=== PATIENT | female | born 1935 | race Caucasian/White ===

== ENCOUNTER 2016-05-01 07:28 | Day surgery (SDC) | payer OTHER ==
[~2016-05-01 07:28] MED LIST: LACTATED RINGERS SOLUTION 1,000 ML IV SCH
[2016-05-01] MEDS ORDERED: PROPOFOL 60 ML ONE (07:53)
[2016-05-01 08:37] VITALS: BMI 28.7
[2016-05-01 09:41] VITALS: TEMP 97.2
[2016-05-01 10:44] VITALS: BP 112/52; PULSE 65
--- NOTE | 2016-05-02 13:16 | PATH ---
Surgical Pathology Report Patient Name: REJI DE PAZ [facility]. Rec. #: [id number] /Age/Gender: 1935 (Age: 80) / F Account: [id number] Location: [facility]SU-ENDOSCOPY Taken: 05/01/2016 Received: 05/01/2016 Reported: 05/02/2016 Physicians: Qamar Torrez M.D. Specimen(s) Received BX LEFT COLON Clinical History History of colon polyp Left colon colitis, universal diverticulosis, rule out ischemia, hemorrhoids Final Diagnosis COLON, LEFT, BIOPSY: COLONIC MUCOSA WITH FOCAL ACTIVE COLITIS WITH FOCAL MUCOSAL HEMORRHAGE , VASCUALR CONGESTION AND FOCAL MILD LAMINA PROPRIA FIBROSIS (SEE COMMENT). NO EVIDENCE OF SIGNIFICANT ARCHITECTURAL DISTORTION, GRANULOMATA OR DYSPLASIA. Comment: The histologic findings are non-specific. An ischemic injury may demonstrate these histologic features, although the findings are not pathognomonic of ischemia. Other etiologies of active inflammation such as infections, drug/toxic injury or peridiverticular inflammation cannot be excluded. Clinical and endoscopic correlation and follow up are suggested. Electronically Signed Justo Ponce M.D. Gross Description Received in formalin, labeled "biopsy left colon" are 4 shipman, irregular portions of soft tissue ranging from 0.1-0.4 cm in greatest dimension. The specimens are submitted in toto in one cassette. 05/01/201605/01/2016
== END 2016-05-01 10:44 | disposition home or self-care (01) ==
LOC: JASU-ENDO 07:28
PROVIDERS: ATTEND Internal Medicine Gastroenterology
PROC: 0DBG8ZX Excision of Left Large Intestine, Via Natural or Artificial Opening Endoscopic, Diagnostic (ICD-10-PCS; principal; 2016-05-01 08:30)
DX: Z12.11 Encounter for screening for malignant neoplasm of colon (principal); Z86.010 Personal history of colon polyps; K51.50 Left sided colitis without complications; K57.30 Diverticulosis of large intestine without perforation or abscess without bleeding; K64.8 Other hemorrhoids; K63.89 Other specified diseases of intestine; I10 Essential (primary) hypertension; J44.9 Chronic obstructive pulmonary disease, unspecified; Z87.891 Personal history of nicotine dependence
CPT/HCPCS: 88305-TC

== ENCOUNTER 2019-12-19 15:00 | Emergency (ER) | payer OTHER ==
[2019-12-19 15:18] VITALS: PULSE 82; BMI 33.4
[2019-12-19] MEDS ORDERED: DIPHTH,PERTUSS(ACELL),TET 0.5 ML DISP.SYRIN IM ONE ×2 (15:45→15:48)
[2019-12-19] MEDS ORDERED: ACETAMINOPHEN 325 MG TABLET (FP) PO ONE (15:55)
[2019-12-19] MEDS ORDERED: ACETAMINOPHEN 325 MG TABLET (FP) ONE (15:56)
[2019-12-19 19:40] VITALS: BP 140/65; TEMP 97.2
== END 2019-12-19 19:41 | disposition home or self-care (01) ==
LOC: JERFT 15:00
PROC: 0HQKXZZ Repair Right Lower Leg Skin, External Approach (ICD-10-PCS; principal; 2019-12-19)
PROC: 3E0234Z Introduction of Serum, Toxoid and Vaccine into Muscle, Percutaneous Approach (ICD-10-PCS; 2019-12-19)
DX: S81.011A Laceration without foreign body, right knee, initial encounter (principal)
CPT/HCPCS: 73562-TC-RT-FY; 90715; 99284-25

== ENCOUNTER 2020-04-23 08:22 | Day surgery (SDC) | payer OTHER ==
[2020-04-20 10:47] VITALS: BMI 31.8
[2020-04-23] MEDS ORDERED: BUPIVACAINE HCL/PF 2.5 MG/ML - 30 ML VIAL IJ ONE (10:22)
[2020-04-23] MEDS ORDERED: PROPOFOL 20 ML ONE (10:43)
[2020-04-23] MEDS ORDERED: BUPIVACAINE HCL/PF 0.25% (2.5MG/ML) 10 ML VIAL IJ ONE (11:20)
[2020-04-23] MEDS ORDERED: ONDANSETRON 4 MG/2 ML VIAL IVPUSH PRN (11:33)
[2020-04-23] MEDS ORDERED: PROMETHAZINE HCL 25 MG/1 ML VIAL IVPUSH PRN (11:33)
[2020-04-23] MEDS ORDERED: oxyCODONE HCL 5 MG TABLET PO PRN ×2 (11:33)
[2020-04-23 14:03] VITALS: BP 142/79; PULSE 73; TEMP 97.8
== END 2020-04-23 14:03 | disposition home or self-care (01) ==
LOC: FASU 08:22
PROVIDERS: ATTEND Orthopaedic Surgery
PROC: 0SBD4ZZ Excision of Left Knee Joint, Percutaneous Endoscopic Approach (ICD-10-PCS; 2020-04-23)
PROC: 0SBD4ZZ Excision of Left Knee Joint, Percutaneous Endoscopic Approach (ICD-10-PCS; 2020-04-23)
PROC: 0SBD4ZZ Excision of Left Knee Joint, Percutaneous Endoscopic Approach (ICD-10-PCS; 2020-04-23)
PROC: 0SBD4ZZ Excision of Left Knee Joint, Percutaneous Endoscopic Approach (ICD-10-PCS; principal; 2020-04-23 11:08)
DX: S83.282A Other tear of lateral meniscus, current injury, left knee, initial encounter (principal); S83.242A Other tear of medial meniscus, current injury, left knee, initial encounter; M94.8X6 Other specified disorders of cartilage, lower leg; M65.862 Other synovitis and tenosynovitis, left lower leg; I10 Essential (primary) hypertension; J44.9 Chronic obstructive pulmonary disease, unspecified; X58.XXXA Exposure to other specified factors, initial encounter; Y93.9 Activity, unspecified; Y92.9 Unspecified place or not applicable; Y99.9 Unspecified external cause status
CPT/HCPCS: 88304-TC; 94760

== ENCOUNTER 2020-12-07 18:12 | Inpatient (IN) | payer OTHER ==
[2020-12-07 20:20] LABS: EOS % 4.3 % (0-4.5); HEMATOCRIT 39.9 % (32.4-45.2); HEMOGLOBIN 13.5 GM/dL (10.7-15.3); LYMPH % 17.5 % (8-40); MCH 29.5 pg (25.7-33.7); MCHC 33.8 g/dl (32.0-36.0); MEAN CELL VOLUME 87.2 fl (80-96); MEAN PLT VOLUME 9.4 fl (7.5-11.1); MONO % 8.5 % (3.8-10.2); NEUT % 68.7 % (42.8-82.8); PLATELET COUNT 229 10^3/uL (134-434); RBC 4.57 M/mm3 (3.60-5.2); RDW 14.4 % (11.6-15.6); WHITE BLOOD COUNT 7.3 K/mm3 (4.0-10.0)
[2020-12-07 20:53] LABS: CALCIUM 9.2 mg/dL (8.5-10.1)
[2020-12-07 20:54] LABS: ALBUMIN 3.3 g/dl (3.4-5.0); BLOOD UREA NITROGEN 20.4 mg/dL (7-18)
[2020-12-07 20:57] LABS: CREATININE 1.1 mg/dL (0.55-1.3)
[2020-12-07 20:59] LABS: BILIRUBIN,TOTAL 0.4 mg/dL (0.2-1); TOT PROT 7.6 g/dl (6.4-8.2)
[2020-12-07] MEDS ORDERED: VANCOMYCIN 1 GM in D5W (PRE-DOCKED) 1,000 MG/250 ML IVPB ONE (21:16)
[2020-12-07] MEDS ORDERED: VANCOMYCIN 1 GRAM (PRE-DOCKED) 1,000 MG/250 ML BAG IVPB ONE (21:35)
[2020-12-07] MEDS ORDERED: PIPERACILLIN/TAZOB 3.375 GM 3.375 GM/50 ML BAG IVPB ONE (21:35)
[2020-12-07] MEDS: PIPERACILLIN/TAZOB 3.375 GM 3.375 GM in DEXTROSE 5%-WATER - 50 ML IVPB ONE (21:41)
[2020-12-07] MEDS ORDERED: dilTIAZem HCL 30 MG TABLET ONE (22:43)
[2020-12-07] MEDS ORDERED: ATORVASTATIN CA 10 MG TABLET (FP) ONE (22:43)
[2020-12-07] MEDS: ATORVASTATIN CA 10 MG TABLET (FP) PO SCH (22:46)
[2020-12-07 23:53] LABS: CALCIUM 9.1 mg/dL (8.5-10.1)
[2020-12-07 23:54] LABS: BLOOD UREA NITROGEN 17.2 mg/dL (7-18)
[2020-12-07 23:57] LABS: CREATININE 1.1 mg/dL (0.55-1.3)
[2020-12-08] MEDS: BUDESONIDE/FORMETEROL FUMARATE 160/4.5 mcg INHALER IH SCH ×3 (00:33→21:35)
[2020-12-08] MEDS ORDERED: LINEZOLID 600 MG PREMIX BAG 600 MG/300 ML BAG IVPB SCH (02:00)
[2020-12-08 02:47] VITALS: BMI 30.7
[2020-12-08] MEDS ORDERED: PT OWN MED DRAWER 7, Y5N ONE ×3 (06:14→21:27)
[2020-12-08] MEDS: LISINOPRIL 10 MG TABLET PO SCH (06:39)
[2020-12-08 07:52] LABS: HEMATOCRIT 36.8 % (32.4-45.2); HEMOGLOBIN 12.7 GM/dL (10.7-15.3); MCH 29.4 pg (25.7-33.7); MCHC 34.5 g/dl (32.0-36.0); MEAN CELL VOLUME 85.2 fl (80-96); MEAN PLT VOLUME 9.1 fl (7.5-11.1); PLATELET COUNT 217 10^3/uL (134-434); RBC 4.32 M/mm3 (3.60-5.2); RDW 13.8 % (11.6-15.6); WHITE BLOOD COUNT 6.3 K/mm3 (4.0-10.0)
[2020-12-08 08:18] LABS: ALBUMIN 3.2 g/dl (3.4-5.0)
[2020-12-08 08:19] LABS: BLOOD UREA NITROGEN 13.9 mg/dL (7-18); CALCIUM 8.7 mg/dL (8.5-10.1); MAGNESIUM 2.1 mg/dL (1.8-2.4)
[2020-12-08 08:22] LABS: BILIRUBIN,TOTAL 0.9 mg/dL (0.2-1); PHOSPHOROUS 2.9 mg/dL (2.5-4.9); TOT PROT 6.7 g/dl (6.4-8.2)
[2020-12-08] MEDS ORDERED: PIPERACILLIN/TAZOB 3.375 GM 3.375 GM in DEXTROSE 5%-WATER - 50 ML IVPB SCH (10:00)
[2020-12-08] MEDS ORDERED: PIPERACILLIN/TAZOBACTAM 3.375 GM VIAL IVPB ONE (10:07)
[2020-12-08] MEDS ORDERED: DEXTROSE 5%-WATER - 50 ML IVPB ONE ×2 (10:08→17:01)
[2020-12-08] MEDS: ENOXAPARIN NA (PORCINE) 40 MG/0.4 ML DISP.SYRIN SQ SCH (10:39)
[2020-12-08] MEDS: PIPERACILLIN/TAZOB 3.375 GM 3.375 GM in DEXTROSE 5%-WATER - 50 ML IVPB ONE (11:22)
[2020-12-08] MEDS ORDERED: ceFAZolin SODIUM 1 GM VIAL ONE (17:01)
[2020-12-08] MEDS: CEFAZOLIN 1 GM in DEXTROSE 5%-WATER - 50 ML IVPB SCH (17:03)
[2020-12-08] MEDS: ACETAMINOPHEN 325 MG TABLET (FP) PO PRN (20:35)
[2020-12-08] MEDS: ATORVASTATIN CA 10 MG TABLET (FP) PO SCH (21:34)
[2020-12-09] MEDS ORDERED: DEXTROSE 5%-WATER - 50 ML IVPB ONE ×3 (00:58→17:43)
[2020-12-09] MEDS ORDERED: ceFAZolin SODIUM 1 GM VIAL ONE ×3 (00:58→17:43)
[2020-12-09] MEDS: CEFAZOLIN 1 GM in DEXTROSE 5%-WATER - 50 ML IVPB SCH ×3 (01:05→17:45)
[2020-12-09 01:28] LABS: EPI CELLS >36 /uL (0-25.1); HYALINE CASTS 3 /uL (0-3.1); URINE APPEARANCE CLEAR; URINE BACTERIA 21 /uL (0-1359); URINE BILIRUBIN NEGATIVE (NEGATIVE); URINE COLOR YELLOW; URINE GLUCOSE (UA) NEGATIVE (NEGATIVE); URINE KETONE TRACE (NEGATIVE); URINE LEUK ESTERASE 2+ (NEGATIVE); URINE NITRITE NEGATIVE (NEGATIVE); URINE PROTEIN NEGATIVE (NEGATIVE); URINE RBC 5 /uL (0-23.9); URINE UROBILINOGEN 0.2 mg/dL (0.2-1.0); URINE WBC 133 /uL (0-25.8)
[2020-12-09] MEDS ORDERED: PT OWN MED DRAWER 7, Y5N ONE ×4 (06:07→21:12)
[2020-12-09] MEDS: LISINOPRIL 10 MG TABLET PO SCH (06:11)
[2020-12-09 07:27] LABS: BASO % 1.1 % (0-2.0); EOS % 5.8 % (0-4.5); HEMATOCRIT 36.3 % (32.4-45.2); HEMOGLOBIN 12.3 GM/dL (10.7-15.3); LYMPH % 21.9 % (8-40); MCH 29.5 pg (25.7-33.7); MCHC 33.9 g/dl (32.0-36.0); MEAN CELL VOLUME 86.8 fl (80-96); MEAN PLT VOLUME 9.2 fl (7.5-11.1); MONO % 8.6 % (3.8-10.2); NEUT % 62.6 % (42.8-82.8); PLATELET COUNT 214 10^3/uL (134-434); RBC 4.18 M/mm3 (3.60-5.2); RDW 14.3 % (11.6-15.6); WHITE BLOOD COUNT 5.6 K/mm3 (4.0-10.0)
[2020-12-09 07:45] LABS: CALCIUM 8.9 mg/dL (8.5-10.1)
[2020-12-09 07:46] LABS: ALBUMIN 2.9 g/dl (3.4-5.0); BLOOD UREA NITROGEN 16.4 mg/dL (7-18)
[2020-12-09 07:49] LABS: CREATININE 1.1 mg/dL (0.55-1.3)
[2020-12-09 07:51] LABS: BILIRUBIN,TOTAL 0.5 mg/dL (0.2-1); TOT PROT 6.6 g/dl (6.4-8.2)
[2020-12-09 07:52] LABS: MAGNESIUM 2.4 mg/dL (1.8-2.4)
[2020-12-09] MEDS: ENOXAPARIN NA (PORCINE) 40 MG/0.4 ML DISP.SYRIN SQ SCH (09:04)
[2020-12-09] MEDS: ASPIRIN COATED 81 MG TABLET.EC PO SCH (09:04)
[2020-12-09] MEDS: ACETAMINOPHEN 325 MG TABLET (FP) PO PRN (09:05)
[2020-12-09] MEDS: PARoxetine HCL 20 MG TABLET PO SCH (09:05)
[2020-12-09] MEDS: TIOTROPIUM BROMIDE 2.5 MCG (SPIRIVA) RESPIMAT INHALER IH SCH (10:27)
[2020-12-09] MEDS: BUDESONIDE/FORMETEROL FUMARATE 160/4.5 mcg INHALER IH SCH ×2 (10:27→21:25)
[2020-12-09] MEDS: ATORVASTATIN CA 10 MG TABLET (FP) PO SCH (21:25)
[2020-12-10] MEDS ORDERED: ceFAZolin SODIUM 1 GM VIAL ONE ×3 (02:04→17:19)
[2020-12-10] MEDS ORDERED: DEXTROSE 5%-WATER - 50 ML IVPB ONE ×3 (02:05→17:20)
[2020-12-10] MEDS: CEFAZOLIN 1 GM in DEXTROSE 5%-WATER - 50 ML IVPB SCH ×3 (02:07→17:22)
[2020-12-10] MEDS: LISINOPRIL 10 MG TABLET PO SCH (06:56)
[2020-12-10 08:36] LABS: BASO % 1.2 % (0-2.0); EOS % 11.4 % (0-4.5); HEMATOCRIT 38.3 % (32.4-45.2); HEMOGLOBIN 13.1 GM/dL (10.7-15.3); LYMPH % 21.7 % (8-40); MCH 29.5 pg (25.7-33.7); MCHC 34.1 g/dl (32.0-36.0); MEAN CELL VOLUME 86.4 fl (80-96); MEAN PLT VOLUME 9.2 fl (7.5-11.1); MONO % 8.3 % (3.8-10.2); NEUT % 57.4 % (42.8-82.8); PLATELET COUNT 216 10^3/uL (134-434); RBC 4.43 M/mm3 (3.60-5.2); RDW 13.9 % (11.6-15.6); WHITE BLOOD COUNT 6.2 K/mm3 (4.0-10.0)
[2020-12-10 08:57] LABS: ALBUMIN 3.2 g/dl (3.4-5.0); BLOOD UREA NITROGEN 16.2 mg/dL (7-18); MAGNESIUM 2.2 mg/dL (1.8-2.4)
[2020-12-10 09:02] LABS: BILIRUBIN,TOTAL 0.5 mg/dL (0.2-1); TOT PROT 6.9 g/dl (6.4-8.2)
[2020-12-10] MEDS ORDERED: PT OWN MED DRAWER 7, Y5N ONE ×3 (09:46→21:49)
[2020-12-10] MEDS: ASPIRIN COATED 81 MG TABLET.EC PO SCH (09:51)
[2020-12-10] MEDS: ENOXAPARIN NA (PORCINE) 40 MG/0.4 ML DISP.SYRIN SQ SCH (09:51)
[2020-12-10] MEDS: PARoxetine HCL 20 MG TABLET PO SCH (09:52)
[2020-12-10] MEDS: BUDESONIDE/FORMETEROL FUMARATE 160/4.5 mcg INHALER IH SCH ×2 (09:53→21:52)
[2020-12-10] MEDS: TIOTROPIUM BROMIDE 2.5 MCG (SPIRIVA) RESPIMAT INHALER IH SCH (09:54)
[2020-12-10] MEDS: OMEGA-3 ACID ETHYL ESTERS (FATTY-ACIDS) 1 GM CAPSULE (FP) PO SCH ×2 (10:23→21:51)
[2020-12-10] MEDS ORDERED: POLYETHYLENE GLYCOL (HEALTHYLAX) 3350 17 GM PACKET PO ONE (17:12)
[2020-12-10] MEDS ORDERED: DOCUSATE SODIUM 100 MG CAPSULE (FP) PO ONE (17:12)
[2020-12-10] MEDS: ATORVASTATIN CA 10 MG TABLET (FP) PO SCH (21:51)
[2020-12-11] MEDS ORDERED: ceFAZolin SODIUM 1 GM VIAL ONE ×3 (01:11→17:13)
[2020-12-11] MEDS ORDERED: DEXTROSE 5%-WATER - 50 ML IVPB ONE ×3 (01:12→17:13)
[2020-12-11] MEDS: CEFAZOLIN 1 GM in DEXTROSE 5%-WATER - 50 ML IVPB SCH ×3 (01:15→17:22)
[2020-12-11] MEDS ORDERED: PT OWN MED DRAWER 7, Y5N ONE ×4 (07:05→14:13)
[2020-12-11] MEDS: LISINOPRIL 10 MG TABLET PO SCH (07:06)
[2020-12-11] MEDS: ENOXAPARIN NA (PORCINE) 40 MG/0.4 ML DISP.SYRIN SQ SCH (09:01)
[2020-12-11] MEDS: ASPIRIN COATED 81 MG TABLET.EC PO SCH ×2 (09:01→09:12)
[2020-12-11] MEDS: PARoxetine HCL 20 MG TABLET PO SCH (09:02)
[2020-12-11] MEDS: OMEGA-3 ACID ETHYL ESTERS (FATTY-ACIDS) 1 GM CAPSULE (FP) PO SCH ×2 (09:03→21:46)
[2020-12-11] MEDS: POLYETHYLENE GLYCOL (HEALTHYLAX) 3350 17 GM PACKET PO SCH (09:03)
[2020-12-11] MEDS: TIOTROPIUM BROMIDE 2.5 MCG (SPIRIVA) RESPIMAT INHALER IH SCH (09:04)
[2020-12-11] MEDS: BUDESONIDE/FORMETEROL FUMARATE 160/4.5 mcg INHALER IH SCH ×2 (09:04→21:47)
[2020-12-11 10:01] LABS: BASO % 0.6 % (0-2.0); EOS % 4.3 % (0-4.5); HEMATOCRIT 39.4 % (32.4-45.2); HEMOGLOBIN 13.1 GM/dL (10.7-15.3); LYMPH % 7.1 % (8-40); MCHC 33.3 g/dl (32.0-36.0); MEAN PLT VOLUME 9.2 fl (7.5-11.1); MONO % 6.1 % (3.8-10.2); NEUT % 81.9 % (42.8-82.8); PLATELET COUNT 217 10^3/uL (134-434); RBC 4.53 M/mm3 (3.60-5.2); WHITE BLOOD COUNT 12.8 K/mm3 (4.0-10.0)
[2020-12-11 10:21] LABS: ALBUMIN 3.1 g/dl (3.4-5.0); BLOOD UREA NITROGEN 23.4 mg/dL (7-18); CALCIUM 9.1 mg/dL (8.5-10.1)
[2020-12-11 10:24] LABS: CREATININE 1.1 mg/dL (0.55-1.3)
[2020-12-11 10:26] LABS: BILIRUBIN,TOTAL 0.6 mg/dL (0.2-1); TOT PROT 6.8 g/dl (6.4-8.2)
[2020-12-11 10:27] LABS: MAGNESIUM 2.1 mg/dL (1.8-2.4)
[2020-12-11] MEDS: ATORVASTATIN CA 10 MG TABLET (FP) PO SCH (21:46)
[2020-12-12] MEDS: CEFAZOLIN 1 GM in DEXTROSE 5%-WATER - 50 ML IVPB SCH ×2 (01:01→09:25)
[2020-12-12] MEDS ORDERED: ceFAZolin SODIUM 1 GM VIAL ONE ×2 (01:04→09:23)
[2020-12-12] MEDS ORDERED: DEXTROSE 5%-WATER - 50 ML IVPB ONE ×2 (01:04→09:23)
[2020-12-12] MEDS ORDERED: PT OWN MED DRAWER 7, Y5N ONE ×2 (06:03→13:28)
[2020-12-12] MEDS: LISINOPRIL 10 MG TABLET PO SCH (06:07)
[2020-12-12] MEDS: PARoxetine HCL 20 MG TABLET PO SCH (09:27)
[2020-12-12] MEDS: ENOXAPARIN NA (PORCINE) 40 MG/0.4 ML DISP.SYRIN SQ SCH (09:27)
[2020-12-12] MEDS: POLYETHYLENE GLYCOL (HEALTHYLAX) 3350 17 GM PACKET PO SCH (09:27)
[2020-12-12] MEDS: OMEGA-3 ACID ETHYL ESTERS (FATTY-ACIDS) 1 GM CAPSULE (FP) PO SCH (09:27)
[2020-12-12] MEDS: TIOTROPIUM BROMIDE 2.5 MCG (SPIRIVA) RESPIMAT INHALER IH SCH (09:36)
[2020-12-12] MEDS: BUDESONIDE/FORMETEROL FUMARATE 160/4.5 mcg INHALER IH SCH (09:36)
[2020-12-12 10:01] LABS: BASO % 0.9 % (0-2.0); EOS % 5.6 % (0-4.5); HEMATOCRIT 37.4 % (32.4-45.2); HEMOGLOBIN 12.6 GM/dL (10.7-15.3); LYMPH % 9.9 % (8-40); MCH 29.6 pg (25.7-33.7); MCHC 33.7 g/dl (32.0-36.0); MEAN CELL VOLUME 87.6 fl (80-96); MEAN PLT VOLUME 9.8 fl (7.5-11.1); MONO % 5.7 % (3.8-10.2); NEUT % 77.9 % (42.8-82.8); PLATELET COUNT 194 10^3/uL (134-434); RBC 4.27 M/mm3 (3.60-5.2); RDW 14.3 % (11.6-15.6); WHITE BLOOD COUNT 11.2 K/mm3 (4.0-10.0)
[2020-12-12 10:22] LABS: CALCIUM 9.2 mg/dL (8.5-10.1)
[2020-12-12 10:23] LABS: BLOOD UREA NITROGEN 22.9 mg/dL (7-18)
[2020-12-12 10:26] LABS: MAGNESIUM 2.2 mg/dL (1.8-2.4)
[2020-12-12 10:28] LABS: BILIRUBIN,TOTAL 0.7 mg/dL (0.2-1); TOT PROT 6.6 g/dl (6.4-8.2)
[2020-12-12 15:00] VITALS: BP 134/56; PULSE 77; TEMP 98.3
[2020-12-13] MEDS ORDERED: CEPHALEXIN MONOHYDRATE 500 MG CAPSULE (UD) PO SCH (22:00)
== END 2020-12-12 17:57 | disposition home or self-care (01) | DRG 603 ==
LOC: JER 18:12 → JERBED 19:37 → J6S 23:34
PROVIDERS: ADMIT Internal Medicine; ATTEND Nurse Practitioner Acute Care
DX: L03.115 Cellulitis of right lower limb (principal); L97.818 Non-pressure chronic ulcer of other part of right lower leg with other specified severity; J43.9 Emphysema, unspecified; I10 Essential (primary) hypertension; E78.5 Hyperlipidemia, unspecified; L03.116 Cellulitis of left lower limb; I87.8 Other specified disorders of veins; D72.829 Elevated white blood cell count, unspecified
CPT/HCPCS: 36415; 73590-TC-RT-FY; 80048; 80053; 81003; 83735; 84100; 85025; 85027; 87040; 87086; 93005; 93010; 93971-TC; 97116-GP; 97161-GP; 99285-25; C9803; U0003; U0005

== ENCOUNTER 2021-01-23 14:29 | Observation (INO) | payer OTHER ==
[2021-01-23] MEDS ORDERED: TETRACAINE/BENZOCAINE/BUTAMBEN 20 GM SPR TP ONE (16:11)
[2021-01-23] MEDS ORDERED: HURRICAINE SP EXT TUBE 1 EA EACH TP ONE (16:13)
[2021-01-23 20:23] LABS: BASO % 0.6 % (0-2.0); EOS % 2.8 % (0-4.5); HEMATOCRIT 42.7 % (32.4-45.2); HEMOGLOBIN 14.3 GM/dL (10.7-15.3); LYMPH % 17.5 % (8-40); MCH 29.5 pg (25.7-33.7); MCHC 33.6 g/dl (32.0-36.0); MEAN CELL VOLUME 87.8 fl (80-96); MEAN PLT VOLUME 9.9 fl (7.5-11.1); MONO % 7.4 % (3.8-10.2); NEUT % 71.7 % (42.8-82.8); PLATELET COUNT 206 10^3/uL (134-434); RBC 4.86 M/mm3 (3.60-5.2); RDW 14.7 % (11.6-15.6); WHITE BLOOD COUNT 7.8 K/mm3 (4.0-10.0)
[2021-01-23 20:29] LABS: INR 1.04 (0.83-1.09); PROTHROMBIN TIME (PATIENT) 11.7 SEC (9.7-13.0)
[2021-01-23 20:32] LABS: ACTIVATED PTT 31.3 SECONDS (25.2-36.5)
[2021-01-23 20:42] LABS: CALCIUM 9.4 mg/dL (8.5-10.1)
[2021-01-23 20:43] LABS: ALBUMIN 3.6 g/dl (3.4-5.0)
[2021-01-23] MEDS ORDERED: ALBUTEROL SO4 HFA INHALER IH ONE (20:45)
[2021-01-23 20:46] LABS: CREATININE 1.1 mg/dL (0.55-1.3)
[2021-01-23 20:47] LABS: BILIRUBIN,TOTAL 0.4 mg/dL (0.2-1); TOT PROT 7.9 g/dl (6.4-8.2)
[2021-01-23] MEDS ORDERED: ONDANSETRON 4 MG/2 ML VIAL IVPUSH PRN (21:33)
[2021-01-23] MEDS ORDERED: LACTATED RINGERS SOLUTION 1,000 ML IV SCH (21:45)
[2021-01-24] MEDS ORDERED: LACTATED RINGERS SOLUTION 1,000 ML IV SCH (00:02)
[2021-01-24] MEDS ORDERED: ZOLPIDEM TARTRATE 5 MG TABLET PO PRN (00:15)
[2021-01-24 04:10] VITALS: BMI 32.5
[2021-01-24] MEDS ORDERED: dilTIAZem HCL 60 MG TABLET PO SCH (06:00)
[2021-01-24 08:49] LABS: BASO % 0.7 % (0-2.0); EOS % 4.2 % (0-4.5); HEMATOCRIT 37.3 % (32.4-45.2); HEMOGLOBIN 12.4 GM/dL (10.7-15.3); LYMPH % 23.3 % (8-40); MCH 29.3 pg (25.7-33.7); MCHC 33.4 g/dl (32.0-36.0); MEAN CELL VOLUME 87.9 fl (80-96); MEAN PLT VOLUME 10.1 fl (7.5-11.1); MONO % 8.7 % (3.8-10.2); NEUT % 63.1 % (42.8-82.8); PLATELET COUNT 181 10^3/uL (134-434); RBC 4.25 M/mm3 (3.60-5.2); RDW 14.5 % (11.6-15.6); WHITE BLOOD COUNT 5.9 K/mm3 (4.0-10.0)
[2021-01-24 08:54] LABS: CALCIUM 8.8 mg/dL (8.5-10.1)
[2021-01-24 08:55] LABS: BLOOD UREA NITROGEN 14.8 mg/dL (7-18)
[2021-01-24 08:58] LABS: CREATININE 0.8 mg/dL (0.55-1.3)
[2021-01-24] MEDS ORDERED: PT OWN MED DRAWER 7, Y5N ONE ×4 (09:50→21:14)
[2021-01-24] MEDS: ENOXAPARIN NA (PORCINE) 40 MG/0.4 ML DISP.SYRIN SQ SCH (09:59)
[2021-01-24] MEDS: PARoxetine HCL 20 MG TABLET PO SCH (09:59)
[2021-01-24] MEDS: BUDESONIDE/FORMETEROL FUMARATE 160/4.5 mcg INHALER IH SCH ×2 (12:46→21:55)
[2021-01-24] MEDS: PANTOPRAZOLE 40 MG TABLET PO SCH (12:50)
[2021-01-24] MEDS ORDERED: ATORVASTATIN CA 10 MG TABLET (FP) PO SCH (22:00)
[2021-01-25 08:47] LABS: HEMATOCRIT 37.2 % (32.4-45.2); HEMOGLOBIN 12.5 GM/dL (10.7-15.3); MCH 29.3 pg (25.7-33.7); MCHC 33.6 g/dl (32.0-36.0); MEAN CELL VOLUME 87.2 fl (80-96); MEAN PLT VOLUME 10.2 fl (7.5-11.1); PLATELET COUNT 176 10^3/uL (134-434); RBC 4.27 M/mm3 (3.60-5.2); RDW 14.4 % (11.6-15.6); WHITE BLOOD COUNT 5.6 K/mm3 (4.0-10.0)
[2021-01-25 09:03] LABS: CALCIUM 8.9 mg/dL (8.5-10.1)
[2021-01-25 09:04] LABS: BLOOD UREA NITROGEN 10.8 mg/dL (7-18); MAGNESIUM 2.2 mg/dL (1.8-2.4)
[2021-01-25 09:07] LABS: CREATININE 0.8 mg/dL (0.55-1.3); PHOSPHOROUS 4.4 mg/dL (2.5-4.9)
[2021-01-25] MEDS: ENOXAPARIN NA (PORCINE) 40 MG/0.4 ML DISP.SYRIN SQ SCH (09:32)
[2021-01-25] MEDS: PANTOPRAZOLE 40 MG TABLET PO SCH (09:32)
[2021-01-25] MEDS: PARoxetine HCL 20 MG TABLET PO SCH (09:32)
[2021-01-25] MEDS: BUDESONIDE/FORMETEROL FUMARATE 160/4.5 mcg INHALER IH SCH (11:11)
[2021-01-25] MEDS ORDERED: PT OWN MED DRAWER 7, Y5N ONE (14:39)
[2021-01-25 15:25] VITALS: BP 124/67; PULSE 80; TEMP 98.1
== END 2021-01-25 18:19 | disposition home or self-care (01) ==
LOC: JER 14:29 → UNDOADMOB 20:30 → INTOOBSV 20:30 → JERBED 20:30 → J8W 01-24 02:04 → JERBED 01-24 02:04 → J8W 01-24 02:04
PROVIDERS: ADMIT Internal Medicine; ATTEND Internal Medicine
PROC: 0DJ08ZZ Inspection of Upper Intestinal Tract, Via Natural or Artificial Opening Endoscopic (ICD-10-PCS; principal; 2021-01-23 20:30)
DX: T18.128A Food in esophagus causing other injury, initial encounter (principal); X58.XXXA Exposure to other specified factors, initial encounter; Y93.89 Activity, other specified; Y92.89 Other specified places as the place of occurrence of the external cause; I10 Essential (primary) hypertension; E78.5 Hyperlipidemia, unspecified; J43.9 Emphysema, unspecified; K21.9 Gastro-esophageal reflux disease without esophagitis; E03.9 Hypothyroidism, unspecified; E04.1 Nontoxic single thyroid nodule; K22.3 Perforation of esophagus; E66.9 Obesity, unspecified; Z68.32 Body mass index [BMI] 32.0-32.9, adult; Z87.891 Personal history of nicotine dependence; Z87.440 Personal history of urinary (tract) infections; Z88.1 Allergy status to other antibiotic agents; Z91.041 Radiographic dye allergy status
CPT/HCPCS: 36415; 70490-TC; 71046-TC-FY; 71250-TC; 74176-TC; 74230-TC-FY; 80048; 80053; 83735; 84100; 85025; 85027; 85610; 85730; 86850; 86900; 86901; 92611-GN; 93005; 93010; 94760; 99285-25; C9803; G0378; U0003; U0005

== ENCOUNTER 2021-03-07 14:30 | Emergency (ER) | payer OTHER ==
[2021-03-07 14:48] VITALS: BP 157/59; PULSE 92; TEMP 97.9; BMI 32.3
[2021-03-07 18:03] LABS: EPI CELLS 11 /uL (0-25.1); HYALINE CASTS 0 /uL (0-3.1); PH,URINE 5.5 (5.0-8.0); URINE APPEARANCE CLOUDY; URINE BACTERIA >9,000 /uL (0-1359); URINE BILIRUBIN NEGATIVE (NEGATIVE); URINE COLOR YELLOW; URINE GLUCOSE (UA) NEGATIVE (NEGATIVE); URINE KETONE TRACE (NEGATIVE); URINE LEUK ESTERASE 3+ (NEGATIVE); URINE NITRITE POSITIVE (NEGATIVE); URINE PROTEIN TRACE (NEGATIVE); URINE RBC 18 /uL (0-23.9); URINE UROBILINOGEN 0.2 mg/dL (0.2-1.0); URINE WBC 1783 /uL (0-25.8)
== END 2021-03-07 17:14 | disposition home or self-care (01) ==
LOC: JER 14:30 → JERFT 14:30
DX: R30.0 Dysuria (principal)
CPT/HCPCS: 81003; 87086; 87186; 99283-25

== ENCOUNTER 2021-03-30 18:39 | Emergency (ER) | payer OTHER ==
[2021-03-30 18:49] VITALS: BP 151/54; PULSE 89; TEMP 97.7; BMI 31.5
[2021-03-30] MEDS ORDERED: SODIUM CHLORIDE 0.9% 500 ML INFUS.BAG IV ONE (19:43)
[2021-03-30 20:05] LABS: BASO % 1.1 % (0-2.0); EOS % 4.2 % (0-4.5); HEMATOCRIT 42.7 % (32.4-45.2); HEMOGLOBIN 14.2 GM/dL (10.7-15.3); MCH 28.2 pg (25.7-33.7); MCHC 33.4 g/dl (32.0-36.0); MEAN CELL VOLUME 84.6 fl (80-96); MEAN PLT VOLUME 9.7 fl (7.5-11.1); MONO % 8.7 % (3.8-10.2); PLATELET COUNT 214 10^3/uL (134-434); RBC 5.05 M/mm3 (3.60-5.2); WHITE BLOOD COUNT 8.1 K/mm3 (4.0-10.0)
[2021-03-30 20:18] LABS: ALBUMIN 3.8 g/dl (3.4-5.0); BLOOD UREA NITROGEN 22.9 mg/dL (7-18); CALCIUM 9.9 mg/dL (8.5-10.1)
[2021-03-30 20:22] LABS: CREATININE 1.1 mg/dL (0.55-1.3)
[2021-03-30 20:24] LABS: BILIRUBIN,TOTAL 0.5 mg/dL (0.2-1)
[2021-03-30] MEDS ORDERED: ACETAMINOPHEN 500 MG TABLET (FP) PO ONE (20:39)
[2021-03-30] MEDS ORDERED: ACETAMINOPHEN INJECTION 100 ML IVPB ONE (21:01)
[2021-03-30] MEDS ORDERED: ACETAMINOPHEN 500 MG TABLET (FP) ONE (21:20)
[2021-03-30 22:01] LABS: EPI CELLS >36 /uL (0-25.1); HYALINE CASTS 2 /uL (0-3.1); URINE APPEARANCE CLEAR; URINE BILIRUBIN NEGATIVE (NEGATIVE); URINE COLOR DK YELLOW; URINE GLUCOSE (UA) NEGATIVE (NEGATIVE); URINE KETONE NEGATIVE (NEGATIVE); URINE LEUK ESTERASE 1+ (NEGATIVE); URINE NITRITE POSITIVE (NEGATIVE); URINE PROTEIN NEGATIVE (NEGATIVE); URINE RBC 26 /uL (0-23.9); URINE WBC 61 /uL (0-25.8)
[2021-03-30] MEDS ORDERED: PHENAZOPYRIDINE HCL 100 MG TABLET (FP) PO ONE (22:14)
[2021-03-30] MEDS ORDERED: CEPHALEXIN 250 MG/5 ML ORAL SUSPENSION PO ONE (22:14)
[2021-03-30] MEDS ORDERED: CEPHALEXIN MONOHYDRATE 500 MG CAPSULE (UD) ONE (22:20)
[2021-03-30] MEDS ORDERED: PHENAZOPYRIDINE HCL 100 MG TABLET (FP) ONE (22:21)
== END 2021-03-30 22:42 | disposition home or self-care (01) ==
LOC: JER 18:39
DX: N39.0 Urinary tract infection, site not specified (principal)
CPT/HCPCS: 36415; 80053; 81003; 85025; 87086; 99283-25

== ENCOUNTER 2023-07-23 13:07 | Emergency (ER) | payer OTHER ==
[2023-07-23 13:44] VITALS: BP 0/0; PULSE 0; RESP 0; TEMP 0; BMI 27.4
== END 2023-07-23 19:14 | disposition expired ==
LOC: JER 13:07 → JVIRT 13:07
PROC: 5A1221Z Performance of Cardiac Output, Continuous (ICD-10-PCS; principal; 2023-07-23)
DX: S01.01XA Laceration without foreign body of scalp, initial encounter (principal); I46.9 Cardiac arrest, cause unspecified; W10.8XXA Fall (on) (from) other stairs and steps, initial encounter
CPT/HCPCS: 92950; 99285-25